=== PATIENT | female | born 1950 ===

== ENCOUNTER 2018-10-18 05:00 | Day surgery (SDC) | payer OTHER ==
[~2018-10-18 05:00] MED LIST: ASA81 MG; ASPIRIN81 M1 PO; EVISTA60 MG; METFORMIN HCL850 MG; METFORMIN PO; OMEGA 3 FISH OI1 CAP; OMEPRAZOLE20 MG; OMEPRAZOLE20 MG PO; SYNTHROID50 MCG; TRILIPIX; ZOCOR40 MG
[2018-10-18] MEDS ORDERED: PERCOCET 5-3251 EACH PO (08:42)
== END 2018-10-18 14:30 | disposition home or self-care (01) ==
LOC: CIR.AMB 05:00
DX: C54.1 Malignant neoplasm of endometrium (principal); N84.0 Polyp of corpus uteri